=== PATIENT | female | born 1985 | race American Indian/Alaskan Native ===

== ENCOUNTER 2018-02-18 14:31 | Emergency (ER) | payer MEDICAID ==
[2018-02-18] MEDS ORDERED: TYLENOL PO ONE (14:40)
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
[2018-02-18 16:30] VITALS: BP 118/72
== END 2018-02-18 16:28 | disposition home or self-care (01) ==
LOC: ED 14:31
DX: S83.8X1A Sprain of other specified parts of right knee, initial encounter (principal); M79.651 Pain in right thigh; Z98.51 Tubal ligation status; V49.19XA Passenger injured in collision with other motor vehicles in nontraffic accident, initial encounter; Y93.89 Activity, other specified; Y99.8 Other external cause status; Y92.415 Exit ramp or entrance ramp of street or highway as the place of occurrence of the external cause
CPT/HCPCS: 99282